=== PATIENT | female | born 1995 | race Caucasian/White ===

== ENCOUNTER 2020-12-19 16:56 | Emergency (ER) | payer BC ==
[~2020-12-19] VITALS: Ht 172.7 cm; Wt 82.9 kg
[2020-12-19] MEDS ORDERED: FAMOTIDINE 20 MG/2 ML VIAL ONE (17:26)
[2020-12-19] MEDS ORDERED: IV NORMAL SALINE 1,000ML 1,000 ML IV ONE (17:30)
[2020-12-19] MEDS ORDERED: FAMOTIDINE 20 MG/2 ML VIAL IVP ONE (17:30)
[2020-12-19] MEDS ORDERED: DEXAMETHASONE SOD PHOS 10 MG/ML VIAL. IVP ONE (17:30)
[2020-12-19] MEDS ORDERED: diphenhydrAMINE 50 MG/ML VIAL IVP ONE (17:30)
--- NOTE | 2020-12-19 17:34 | PHYS DOC ---
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 Patient reports she is currently being worked up for lupus, Trev's, and mast cell activation syndrome with a Dr. Dc (Allergy/Immunology) associated with [facility]. Patient reports she has had significant allergic reaction type symptoms over the last 3 weeks. 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 Patient reports she has undergone skin testing without significant finding, reports had been on steroid which she finished several weeks ago. Reports she has an epi-pen but hasn't required its use. Patient reports she was helping move some furniture today but had otherwise been feeling fine. Denies known exposure to allergen. Patient reports had significant sensation she was unable to breathe and was going to pass out. Patient reports that symptom has since improved however rash has continued to anterior neck and chest. Review of Systems: Review of Systems: Constitutional: Denies fever or chills Eyes: Denies redness or eye pain HENT: Denies nasal congestion or sore throat or tongue swelling Respiratory: Denies cough; reports shortness of breath Cardiovascular: Denies chest pain or palpitations GI: Denies abdominal pain, nausea, or vomiting : Denies dysuria or hematuria Musculoskeletal: Denies back pain or joint pain Integument: Reports rash and swelling to anterior neck and chest Neurologic: Denies focal weakness or sensory changes; reports headache and dizziness Complete systems were reviewed and found to be within normal limits, except as documented in this note. Current Medications: Current Meds: Current Medications Medications (Trade) Dose Ordered Sig/Kassi Start Time Stop Time Status Last Admin Dose Admin Dexamethasone Sodium Phosphate (Decadron) 10 mg 1X ONCE 12/19/20 17:30 12/19/20 17:31 DC Diphenhydramine HCl (Benadryl) 25 mg 1X ONCE 12/19/20 17:30 12/19/20 17:31 DC Famotidine (Pepcid Vial) 20 mg STK-MED ONCE 12/19/20 17:26 12/19/20 17:26 DC Sodium Chloride 1,000 ml @ 1,000 mls/hr 1X ONCE 12/19/20 17:30 12/19/20 18:29 Allergies: Allergies: Allergies Coded Allergies Type Severity Reaction Last Updated Verified Penicillins Allergy Unknown 12/19/20 Yes amoxicillin Allergy Unknown 12/19/20 Yes Physical Exam: PE: Constitutional: Well developed, well nourished, anxious, non-toxic appearance HENT: Normocephalic, atraumatic, tongue normal, handling own secretions Eyes: Conjunctiva normal, no discharge Neck: Normal range of motion, no tenderness, supple Lungs & Thorax: No respiratory distress, equal chest rise and fall, no stridor Abdomen: Soft, no tenderness Skin: Warm, dry, no erythema, mild swelling and erythema to anterior neck and upper chest Extremities: No tenderness, ROM intact, no edema Neurologic: Alert and oriented X 3, normal motor function, normal sensory function, no focal deficits noted Psychologic: Affect anxious, judgment normal EKG: EKG: @1727 NSR at 68bpm, NO ST elevation, QRS 86ms, QT/QTc 390/415ms Radiology/Procedures: Radiology/Procedures: PROCEDURE: CT HEAD WO CONTRAST EXAM: Head CT without contrast. HISTORY: Seizure-like activity. Headache. TECHNIQUE: Computed tomographic images of the head were obtained without contrast. *One or more of the following individualized dose reduction techniques were utilized for this examination: 1. Automated exposure control. 2. Adjustment of the mA and/or kV according to patient size. 3. Use of iterative reconstruction technique. COMPARISON: None. FINDINGS: There is no acute or subacute extra-axial or intraparenchymal hemorrhage. There is no mass effect or midline shift. There is no hydrocephalus. The gomez-white matter differentiation pattern is intact. The visualized portions of the orbits, paranasal sinuses and mastoid air cells are unremarkable. No suspicious calvarial lesion is seen. IMPRESSION: No acute intracranial findings. Electronically signed by: Ale Siddiqi MD (12/19/2020 6:10 PM) [facility] Heart Score: C/O Chest Pain: N/A Course & Med Decision Making: Course & Med Decision Making Pertinent Labs and Imaging studies reviewed. (See chart for details) Patient presents with report of headache, shortness of breath, dizziness, and rash to neck and chest after sensation that she would is unable to breathe prior to arrival. Patient is currently being worked up for lupus, MCAS, and Trev's with Dr. Dc at [facility]. Patient appears slightly anxious. Patient neurologically intact. EKG stable. Labs obtained and posted to chart. Hypokalemia addressed. Patient given IV Benadryl and Pepcid and started on IV fluids. Nurse was going to give dexamethasone when patient subsequently reportedly "passed out "and then subsequently had seizure-like symptoms. Patient was given steroid and 0.5 mg of Ativan. Patient subsequently awake, alert, and oriented. No loss of bowel or bladder. No tongue laceration. CT head then obtained without acute finding. Given allergic reaction presentation and subsequent syncope/seizure like s ymptoms decision that patient would require further evaluation and admission. Attempted to transfer patient to [facility] to be seen by Dr. Dc. Received information that Dr. Dc does not round on inpatients at [facility]. Discussed findings with Dr. Bynum (hospitalist) who recommends admission to [facility] given possible need for pulmonology and/or neurology for higher level of acuity. Discussed findings and plan with patient and her mother, who acknowledge understanding and agreement. Ariana Disclaimer: Ariana Disclaimer: This electronic medical record was generated, in whole or in part, using a voice recognition dictation system. Departure Departure: Impression: Primary Impression: Syncope Qualified Codes: R55 - Syncope and collapse Additional Impressions: Witnessed seizure-like activity Allergic reaction Qualified Codes: T78.40XD - Allergy, unspecified, subsequent encounter Hypokalemia Disposition: 02 [facility] ([facility]- Dr. Bynum accepting) Admitting Physician: Karina Bynum Condition: STABLE Referrals: PCP,NO (PCP) MARYSE MCFARLAND DO December 19, 2020 17:34
--- NOTE | 2020-12-19 17:52 | EKG ---
[address] [address] Test Date: 2020-12-19 Test Time: 17:27:37 Pat Name: TATO RANGEL Department: Room: Gender: F [employer]: ROS : 1995 Requested By: MARYSE MCFARLAND Order Number: [id number] Reading MD: Measurements Intervals [place] Rate: 68 P: 23 WA: 138 QRS: 24 QRSD: 86 T: 30 QT: 390 QTc: 415 Interpretive Statements SINUS RHYTHM NORMAL ECG RI6.02 No previous ECG available for comparison
[2020-12-19 17:54] LABS: BASO % 1 % (0-3); EOS # 0.1 x10^3/uL (0.0-0.7); EOS % 1 % (0-3); HEMATOCRIT 40.4 % (36.0-47.0); HEMOGLOBIN 13.7 g/dL (12.0-15.5); LYMPH # 3.6 x10^3/uL (1.0-4.8); LYMPH % 38 % (24-48); MEAN CORPUSCULAR HEMOGLOBIN 29 pg (25-35); MEAN CORPUSCULAR HGB CONC 34 g/dL (31-37); MEAN CORPUSCULAR VOLUME 87 fL (79-100); MONO # 0.6 x10^3/uL (0.0-1.1); MONO % 7 % (0-9); NEUT # 5.1 x10^3uL (1.8-7.7); NEUT % 54 % (31-73); PLATELET COUNT 281 x10^3/uL (140-400); RED BLOOD COUNT 4.66 x10^6/uL (3.50-5.40); RED CELL DISTRIBUTION WIDTH 13.2 % (11.5-14.5); WHITE BLOOD COUNT 9.6 x10^3/uL (4.0-11.0)
[2020-12-19 18:02] LABS: CALCIUM 9.3 mg/dL (8.5-10.1); CREATININE 0.8 mg/dL (0.6-1.0); GFR 86.7; POTASSIUM 3.4 mmol/L (3.5-5.1)
[2020-12-19 18:09] LABS: ALBUMIN 4.3 g/dL (3.4-5.0); ALBUMIN/GLOBULIN RATIO 1.1 (1.0-1.7); TOTAL BILIRUBIN 0.3 mg/dL (0.2-1.0); TOTAL PROTEIN 8.3 g/dL (6.4-8.2)
--- NOTE | 2020-12-19 18:12 | RAD ---
EXAM: Head CT without contrast. HISTORY: Seizure-like activity. Headache. TECHNIQUE: Computed tomographic images of the head were obtained without contrast. *One or more of the following individualized dose reduction techniques were utilized for this examina tion: 1. Automated exposure control. 2. Adjustment of the mA and/or kV according to patient size. 3. Use of iterative reconstruction technique. COMPARISON: None. FINDINGS: There is no acute or subacute extra-axial or intraparenchymal hemorrhage. There is no mass effect or midline shift. There is no hydrocephalus. The gomez-white matter differentiation pattern is intact. The visualized portions of the orbits, paranasal sinuses and mastoid air cells are unremarkable. No s uspicious calvarial lesion is seen. IMPRESSION: No acute intracranial findings. Electronically signed by: Ale Siddiqi MD (12/19/2020 6:10 PM) [facility]
[2020-12-19] MEDS ORDERED: POTASSIUM CHLORIDE 10 MEQ TABLET.ER. PO ONE (18:30)
[2020-12-19 19:27] LABS: PREG TEST PT QUAL NEGATIVE (NEG)
[2020-12-19 19:28] LABS: BILIRUBIN,URINE NEG (NEG); CLARITY,URINE CLEAR; COLOR,URINE YELLOW; GLUCOSE,URINE NEG (NEG); NITRITE,URINE NEG (NEG); UROBILINOGEN,URINE 0.2 mg/dL (0.2 mg/dL)
[2020-12-19 19:29] LABS: BACTERIA,URINE 0 /HPF (0-FEW); RBC,URINE 0 /HPF (0-2); SQUAMOUS EPITHELIAL CELL,UR OCC /LPF; WBC,URINE 0 /HPF (0-4)
[2020-12-19 21:05] VITALS: BP 110/73
== END 2020-12-19 21:05 | disposition short-term general hospital (02) ==
LOC: ER 16:56
DX: T78.40XA Allergy, unspecified, initial encounter (principal); R55 Syncope and collapse; R56.9 Unspecified convulsions; E87.6 Hypokalemia; X58.XXXA Exposure to other specified factors, initial encounter; Z88.0 Allergy status to penicillin; Z88.1 Allergy status to other antibiotic agents
CPT/HCPCS: 36415; 70450; 80053; 81001; 83735; 84703; 85025; 93005; 96361; 96374; 96375; 99285; J1100; J1200; J2060; J3490; J7030